=== PATIENT | female | born 1990 | race Caucasian/White ===

== ENCOUNTER 2017-03-10 13:09 | Emergency (ER) | payer MEDICAID ==
--- NOTE | 2017-03-11 20:34 | ER ---
ADMIT: 03/10/2017 RM/LOC: [facility] MR#: [id number] [facility] [address] [place] [id number] HELIO WADEONNE ARAMIS [address] [place] [address] Emergency Room Report SEX: F AGE: 26 : 1990 DATE: 03/10/2017 This is a 26-year-old very pleasant female, complaining of dizziness and pain in her chest for 1 week. She had a baby 7 weeks ago, she is breast feeding now. She is pretty concerned because she has researched, of course some medical apps that her symptoms and she is pretty concerned about having cardiac issues or PE. Her dad very recently of heart attack. She is still very tearful and concerned about her health as she just had a baby and wants the best for her family. She said that she was treated for strep pharyngitis and the rest of the family and that was very recently. Because of her rheumatoid arthritis, she wants to make sure that her infection has been cleared by the antibiotic she took. She has had wisdom tooth removal. MEDICATIONS: 1. She takes prenatals. 2. Albuterol. 3. Plaquenil. 4. Prednisone. ALLERGIES: MORPHINE. PHYSICAL EXAMINATION: VITAL SIGNS: Blood pressure 125/79 with a heart rate of 86, respirations 20, temp is 98.7, and O2 sats 98%. GENERAL: Alert, anxious HEENT: Normal inspection. NECK: Supple. RESPIRATIONS: No distress. CARDIOVASCULAR: Regular in rate and rhythm. ABDOMEN: Nontender. Chest wall tenderness on the left pectoral. No radiation to arms or neck. EXTREMITIES: No edema. NEURO: Normal in orientation. Cranial nerves II through XII tested and normal. Sensory and motor normal. ADMIT: 03/10/2017 RM/LOC: [facility] MR#: [id number] [facility] [address] [place] [id number] [address] [address] [place] [id number] Emergency Room Report SEX: F AGE: 26 : 1990 She states she has had pneumonia and bronchitis in past pregnancies. Rbc's 53 in the urine. No infection. Strep negative. Chest x-ray within normal limits. CLINICAL IMPRESSION: Hematuria; chest wall pain, muscular; myalgia. Given a shot of Toradol, and she did want to get to check and see if she had strep continued with it and I tested her, but it came back negative. She was reassured that it is valid for her to look at apps on the phone to get information, to be able to let the physicians follow up on testing appropriate to symptoms would be much better. She is discharged with instructions to follow her primary provider, hydration, ice to the affected area. DOMINGUEZ Mejia / Jhonatan Melgoza MD / yvonne JOB #: [id number] CC: Jhonatan Melgoza MD, Attending Physician Alexander Voss MD, Family Physician
== END 2017-03-10 16:05 | disposition home or self-care (01) ==
LOC: ER 13:09
DX: R07.89 Other chest pain (principal); R31.9 Hematuria, unspecified; M79.1 Myalgia; Z90.49 Acquired absence of other specified parts of digestive tract; J45.909 Unspecified asthma, uncomplicated; Z88.5 Allergy status to narcotic agent; Z79.899 Other long term (current) drug therapy